=== PATIENT | male | born 1985 ===

== ENCOUNTER → 2018-03-14 16:19 | Outpatient (REF) | payer OTHER, SELFPAY ==
[2018-03-14 17:36] LABS: Hepatitis B Surface Antigen NEGATIVE s/c (NEGATIVE)
[2018-03-14 18:02] LABS: Hep C Virus Ab w/Reflex Quant NEGATIVE s/c (NEGATIVE)
[2018-03-14 18:46] LABS: Urine N gonorrhoeae NOT DETECTED
[2018-03-14 19:09] LABS: Urine Chlamydia NOT DETECTED
[2018-03-18 10:09] LABS: RPR Screen Nonreactive (Nonreactive)
[2018-03-18 13:45] LABS: HSV 2 IGG AB < 0.90 index (< 0.90)
[2018-03-18 20:21] LABS: HIV Ag/Ab, 4th Gen Nonreactive (Nonreactive)
[2018-03-19 07:39] LABS: Hepatitis B Core Antibody Nonreactive (Nonreactive)
[2018-03-19 07:54] LABS: Hepatitis B Surf Ab Qualitativ Nonreactive (Nonreactive)
== END ==
LOC: LAB 16:19
PROVIDERS: Visit Provider Physician Assistant
DX: Z11.3 Encounter for screening for infections with a predominantly sexual mode of transmission (principal)
CPT/HCPCS: 36415; 86592; 86695; 86696; 86703; 86704; 86706; 86803; 87340; 87491; 87591